=== PATIENT | female | born 1960 | race Caucasian/White ===

== ENCOUNTER 2017-05-11 07:11 | Day surgery (SDC) | payer OTHER ==
[~2017-05-11] VITALS: Ht 170.2 cm; Wt 81.6 kg
[~2017-05-11 07:11] MED LIST: OMEPRAZOLE20 M1 PO; PROPRANOLOL HCL80 MG PO
[2017-05-11 11:19] VITALS: BP 129/66
== END 2017-05-11 10:37 | disposition home or self-care (01) | DRG 951 ==
LOC: ENDO 07:11 → ORM 10:45
PROVIDERS: ATTEND Surgery
PROC: 0DJD8ZZ Inspection of Lower Intestinal Tract, Via Natural or Artificial Opening Endoscopic (ICD-10-PCS; principal; 2017-05-11)
PROC: 0DB78ZX Excision of Stomach, Pylorus, Via Natural or Artificial Opening Endoscopic, Diagnostic (ICD-10-PCS; 2017-05-11)
DX: Z12.11 Encounter for screening for malignant neoplasm of colon (principal); R13.10 Dysphagia, unspecified; K21.9 Gastro-esophageal reflux disease without esophagitis; R11.0 Nausea; R14.0 Abdominal distension (gaseous); R63.4 Abnormal weight loss; K29.40 Chronic atrophic gastritis without bleeding; R68.81 Early satiety; K29.80 Duodenitis without bleeding; K44.9 Diaphragmatic hernia without obstruction or gangrene; Q40.2 Other specified congenital malformations of stomach; K64.4 Residual hemorrhoidal skin tags; I10 Essential (primary) hypertension

== ENCOUNTER 2024-02-20 08:32 | Day surgery (SDC) | payer BC ==
[~2024-02-20] VITALS: Ht 170.2 cm; Wt 95.3 kg
[~2024-02-20 08:32] MED LIST changes: +ASPIRIN325 MG PO; +CALCIUM/D3600 MG PO; +CELEBREX100 M1 PO; +FISH OIL1000 M1 PO; +OMEPRAZOLE DR40 MG PO; +TENORMIN25 MG PO; +TYLENOL PM PO
[2024-02-20] MEDS ORDERED: FAMOTIDINE 10MG/ML 2ML SDV IV ONE (08:37)
[2024-02-20] MEDS ORDERED: LACTATED RINGER'S 1,000 ML IV ONE (08:37)
[2024-02-20 10:08] VITALS: BP 117/75
[2024-02-20] MEDS ORDERED: LIDOCAINE HCL 2% 2ML SDV IV ONE (17:52)
[2024-02-20] MEDS ORDERED: GLYCOPYRROLATE 0.2 MG/ML IV ONE (17:52)
[2024-02-20] MEDS ORDERED: PROPOFOL 200 MG/20 ML VIAL IV ONE (17:52)
== END 2024-02-20 10:30 | disposition home or self-care (01) | DRG 368 ==
LOC: ORM 08:32
PROVIDERS: ATTEND Internal Medicine Gastroenterology
PROC: 0DJD8ZZ Inspection of Lower Intestinal Tract, Via Natural or Artificial Opening Endoscopic (ICD-10-PCS; principal; 2024-02-20)
PROC: 0DB48ZX Excision of Esophagogastric Junction, Via Natural or Artificial Opening Endoscopic, Diagnostic (ICD-10-PCS; 2024-02-20)
PROC: 0DB78ZX Excision of Stomach, Pylorus, Via Natural or Artificial Opening Endoscopic, Diagnostic (ICD-10-PCS; 2024-02-20)
DX: K21.01 Gastro-esophageal reflux disease with esophagitis, with bleeding (principal); K29.71 Gastritis, unspecified, with bleeding; K92.1 Melena; K31.89 Other diseases of stomach and duodenum; K44.9 Diaphragmatic hernia without obstruction or gangrene; K64.8 Other hemorrhoids; I10 Essential (primary) hypertension; Z80.0 Family history of malignant neoplasm of digestive organs; Z01.818 Encounter for other preprocedural examination; Z11.52 Encounter for screening for COVID-19; Z12.11 Encounter for screening for malignant neoplasm of colon; K21.9 Gastro-esophageal reflux disease without esophagitis; Z87.19 Personal history of other diseases of the digestive system; Z87.442 Personal history of urinary calculi